=== PATIENT | female | born 1955 | race Caucasian/White ===

== ENCOUNTER 2017-04-12 07:25 | Day surgery (SDC) | payer BC ==
[~2017-04-12 07:25] MED LIST: ACETAMINOPHEN 1,000 MG/100 ML BTL IV ONE; CLINDAMYCIN 600MG/50ML PREMIX 600 MG/50 ML BAG IVPB ONE
[2017-04-12] MEDS ORDERED: KETOROLAC 30 MG/ML VIAL IVP ONE (14:00)
[2017-04-12] MEDS ORDERED: *PACU ONLY* KETAMINE HCL 10 MG/ML (20ML) VIAL IV ONE (14:00)
[2017-04-12] MEDS ORDERED: FENTANYL PF 100MCG/2ML VIAL IV ONE (14:00)
[2017-04-12] MEDS ORDERED: MIDAZOLAM HCL 2MG/2ML VIAL IV ONE (14:00)
[2017-04-12] MEDS ORDERED: PROPOFOL 10 MG/ML VIAL IV ONE (14:00)
[2017-04-12] MEDS ORDERED: BUPIVACAINE 0.25% W/EPI MPF 30ML VIAL IVP ONE (14:00)
--- NOTE | 2017-04-14 12:00 | Operative Note ---
DATE OF SURGERY: 04/12/2017 Surgeon: Beka Mcmahon DO PREOPERATIVE DIAGNOSIS: Back mass. POSTOPERATIVE DIAGNOSIS: Back mass. OPERATION: Excision of mid back mass. Indication: The patient is a 62-year-old female who had a prior lipoma removal from her mid back. She formed an additional mass just lateral to this. We did discuss excision versus observation. Due to pain and enlarging mass, she desired surgical excision. Risks include but are not limited to bleeding, infection, recurrence. She understood this fully. Thereafter, consent was signed and questions answered. PROCEDURE: She was taken to the operating room and placed in a supine position. She was then rotated into right lateral position. Her back was prepped and draped in the usual sterile fashion. Propofol anesthesia was titrated to effect. At this time, her back was anesthetized with a total of 8 mL of 0.25% Sensorcaine with epinephrine. A 5 cm incision was made. This was carried down to the subcutaneous tissue to a capsule of a large lipoma. This was dissected free from the surrounding tissue. This went down to the fascia of her paraspinal muscles. This was then passed off the field. The wound was closed with 3-0 and 4-0 Vicryl. Dermabond was placed. She was taken to the recovery room in satisfactory condition. FINDINGS AT THE TIME OF SURGERY: Mid back mass measuring 5 x 3 cm down to the fascia. CC: CINDA GROSS MD, FACP [facility]
== END 2017-04-12 10:50 | disposition home or self-care (01) ==
LOC: SUR 07:25
PROVIDERS: ATTEND Surgery
DX: D17.1 Benign lipomatous neoplasm of skin and subcutaneous tissue of trunk (principal); E03.9 Hypothyroidism, unspecified; E78.00 Pure hypercholesterolemia, unspecified; I10 Essential (primary) hypertension
CPT/HCPCS: J1885

== ENCOUNTER 2018-10-11 05:56 | Day surgery (SDC) | payer BC ==
[2018-10-11] MEDS ORDERED: ONDANSETRON HCL IV 4 MG/2 ML VIAL IVP ONE (05:57)
[2018-10-11] MEDS ORDERED: BUPIVACAINE LIPOSOME/PF 133MG/10ML VIAL IV ONE (05:57)
[2018-10-11] MEDS ORDERED: MIDAZOLAM HCL 2MG/2ML VIAL IV ONE (05:57)
[2018-10-11] MEDS ORDERED: BUPIVACAINE 0.5% (5MG/ML) PF 30ML VIAL IVP ONE (05:57)
[2018-10-11] MEDS ORDERED: EPINEPHRINE 1 MG/ML AMPUL SQ ONE (05:57)
[2018-10-11] MEDS ORDERED: PROPOFOL 10 MG/ML VIAL IV ONE (05:57)
[2018-10-11] MEDS ORDERED: FENTANYL PF 100MCG/2ML VIAL IV ONE (05:57)
[2018-10-11] MEDS ORDERED: DEXAMETHASONE 4 MG/ML 1ML VIAL IVP ONE (05:57)
[2018-10-11] MEDS ORDERED: LIDOCAINE 2% MDV (20MG/ML) 20ML VIAL IV ONE (05:57)
[2018-10-11] MEDS ORDERED: SEVOFLURANE 250 ML INH ONE (05:57)
[2018-10-11] MEDS ORDERED: METOCLOPRAMIDE 10 MG TABLET PO ONE (06:00)
[2018-10-11] MEDS ORDERED: ACETAMINOPHEN 1,000 MG/100 ML BTL IV ONE (06:00)
[2018-10-11] MEDS ORDERED: MECLIZINE 25 MG TABLET PO ONE (06:00)
[2018-10-11] MEDS ORDERED: FAMOTIDINE 20MG TABLET PO ONE (06:00)
--- NOTE | 2018-10-12 15:10 | Operative Note ---
DATE OF SURGERY: 10/11/2018 Surgeon: Patrice Leon DO PREOPERATIVE DIAGNOSES: 1. Tear of the left rotator cuff. 2. Impingement syndrome, left shoulder. 3. Tear of the glenoid labrum. POSTOPERATIVE DIAGNOSES: 1. Tear of the left rotator cuff. 2. Impingement syndrome, left shoulder. 3. Tear of the supraglenoid labrum. 4. 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 OPERATION: 1. Arthroscopic repair of the left rotator cuff. 2. Arthroscopic subacromial decompression and acromioplasty of the left shoulder. 3. Arthroscopic debridement of the anterior and superior glenoid labrum, left shoulder. DESCRIPTION OF PROCEDURE: This 63-year-old female was taken to the operating room and placed in the supine position on the operating room table. General anesthesia was induced. She was then placed in the beach chair position with all bony prominences well padded and head well secured. Left shoulder prepped with Hibiclens and draped in the usual sterile fashion. A posterior portal was established in the glenohumeral joint. Initial evaluation of the joint demonstrated some fraying of the superior and anterior glenoid labrum. This was debrided through an anterior portal after probing and there was some fraying on the undersurface but it did not appear to be completely detached from the bony glenoid. After debridement, felt that this was stable. The biceps tendon appeared normal. The subscapularis tendon demonstrated some superficial fraying on its posterior surface. This was also debrided. The supraspinatus tendon demonstrated a defect anteriorly. A full-thickness tear was noted there, and this was debrided with the rotating shaver. We marked this area with a stitch to be sure we were going to be able to see this from the bursal surface. The articular cartilage at the humeral head was evaluated and grade 2 chondromalacia was identified in the center of the head. This area was about 1 to 1.5 cm in dimension. It did not appear to be unstable and it was not further disturbed. The scope was then placed in the subacromial space, and the subacromial space was thoroughly debrided and acromioplasty performed through a lateral portal. The suture that we had placed previously to gill the spot of the tear on the inferior surface of the rotator cuff was easily identified and we removed the suture and then debrided the torn bursal side of the tendon as well to expose the tuberosity which was thoroughly debrided and the anatomic footprint of the rotator cuff was cleared of soft tissue debris. We then took what was essentially a "U" shaped tear and repaired it using a modification of the SpeedBridge technique, placing two 4.75 SwiveLock anchors adjacent to the articular cartilage, one with a TigerTape and the second with a FiberTape. Once these had been inserted, an additional support stitch of #2 FiberWire was used in a horizontal mattress fashion. A single limb of each one of these sutures was then grasped and placed through a third SwiveLock anchor which was placed inferior to the anterior anchor. Traction placed on the sutures and then the anchor impaled. Once this had been accomplished, the sutures were cut. The remaining 3 tails of suture were grasped and placed through a fourth SwiveLock anchor which was placed inferior to the posterior anchor and traction was placed on these sutures and then this anchor was also impaled and the sutures cut after the repair was seen to be satisfactory. The wound was irrigated and suctioned. The instruments were removed. The portals closed with 4-0 nylon suture. An Ultrasling was applied and the patient taken to the recovery room in satisfactory condition. GROSS PATHOLOGY: This patient demonstrated a tear of the supraspinatus tendon. There was also fraying of the glenoid labrum which was debrided. Fraying of the posterior surface of the subscapularis was also noted but this was minor. Mild chondromalacia was noted as mentioned above but not further disturbed. CC: CINDA GROSS MD, FACP [facility]
== END 2018-10-11 10:30 | disposition home or self-care (01) ==
LOC: SUR 05:56
PROVIDERS: ATTEND Orthopaedic Surgery
DX: M75.102 Unspecified rotator cuff tear or rupture of left shoulder, not specified as traumatic (principal); S43.432A Superior glenoid labrum lesion of left shoulder, initial encounter; M75.42 Impingement syndrome of left shoulder; M94.212 Chondromalacia, left shoulder; I10 Essential (primary) hypertension; E03.9 Hypothyroidism, unspecified; E78.00 Pure hypercholesterolemia, unspecified; K21.9 Gastro-esophageal reflux disease without esophagitis
CPT/HCPCS: 29827; 29826; 29822; 01630; 64415; J2405; J3010; C9290; 76942; J0171

== ENCOUNTER 2019-01-29 21:21 | Emergency (ER) | payer BC ==
[2019-01-29] MEDS ORDERED: KETOROLAC 30 MG/ML VIAL IVP ONE (21:49)
--- NOTE | 2019-01-29 21:49 | Emergency Department Record ---
History of Present Illness - General Chief Complaint: Back Pain/Injury Stated Complaint: BACK PAIN Time Seen by Provider: 01/29/19 21:27 Source: Patient Mode of Arrival: Ambulatory Limitations: No limitations - History of Present Illness Initial Comments: The patient is here due to L flank pain intermittently for a week. The pain has been sharp and stabbing and located in the L flank. It seems to be worse with movement and intermittently radiates to the anterior abdomen. The patient denies any recent AP, fever, chills, dysuria, nausea, vomiting, or diarrhea. She has no hx of similar pain and denies any leg numbness, weakness or any bowel or bladder issues. MD Complaint: Back pain Onset/Timin -: Week(s) Similar Symptoms Previously: No Severity scale (1-10): 4 Quality: Sharp, Stabbing Consistency: Intermittent Improves With: Medication Worsens With: Movement Context: Unknown Treatments Prior to Arrival: NSAIDS, Other medications - Related Data Previous Rx's Medication Instructions Recorded Cephalexin [Keflex] 500 mg PO TID #21 cap 01/29/19 Naproxen [Naprosyn] 250 mg PO BID #14 tablet 01/29/19 Allergies Allergy/AdvReac Type Severity Reaction Status Date / Time levofloxacin AdvReac Intermediate JOINT ACHES Verified 01/29/19 21:36 potassium clavulanate AdvReac Intermediate NAUSEA Verified 01/29/19 21:36 [From Augmentin] prednisone AdvReac Intermediate RAPID Verified 01/29/19 21:36 HEART RATE prochlorperazine edisylate AdvReac Intermediate ALTERED Verified 01/29/19 21:36 [From Compazine] MENTAL STATUS prochlorperazine maleate AdvReac Intermediate ALTERED Verified 01/29/19 21:36 [From Compazine] MENTAL STATUS propoxyphene HCl AdvReac Intermediate RAPID Verified 01/29/19 21:36 [From Darvon] HEART RATE Sulfa (Sulfonamide AdvReac Intermediate JOINT ACHES Verified 01/29/19 21:36 Antibiotics) Travel Screening - Travel/Exposure Within Last 30 Days Have you traveled within the last 30 days?: No - Travel/Exposure Within Last Year Have you traveled outside the [place] in the last year?: No - Additonal Travel Details Have you been exposed to anyone with a communicable illness?: No - Travel Symptoms Symptom Screening: None Review of Systems Constitutional: Denies: Chills, Fever Eyes: Denies: Eye discharge ENT: Denies: Congestion, Dental pain Respiratory: Denies: Cough, Dyspnea Cardiovascular: Denies: Arrhythmia Endocrine: Denies: Fatigue Gastrointestinal: Denies: Abdominal pain, Nausea Genitourinary: Denies: Dysuria Musculoskeletal: Reports: Back pain. Denies: Arthralgia Skin: Denies: Bruising Past Medical History - SOCIAL HISTORY Smoking Status: Never smoker Alcohol Use: None Drug Use: None - RESPIRATORY Hx Respiratory Disorders: Yes Hx Asthma: Yes (GERD related) - CARDIOVASCULAR Hx Cardio Disorders: Yes Hx Hypertension: Yes (Lisinopril rx) - NEURO Hx Neuro Disorders: No - GI Hx GI Disorders: Yes Hx Diverticulitis: Yes Hx Reflux: Yes Hx Hiatal Hernia: Yes Hx Irritable Bowel: Yes (off & on) - Hx Genitourinary Disorders: No Comment:: hyst. on zoloft for menopause - ENDOCRINE Hx Endocrine Disorders: Yes Hx Thyroid Disease: Yes (low) - MUSCULOSKELETAL Hx Musculoskeletal Disorders: Yes Comment:: trigger fingers no problem now - PSYCH Hx Psych Problems: Yes Hx Anxiety: Yes Hx Depression: Yes - HEMATOLOGY/ONCOLOGY Hx Hematology/Oncology Disorders: Yes Hx Blood Transfusions: Yes (34 yrs ago) Hx Blood Transfusion Reaction: No Family Medical History Any Significant Family History?: Yes Hx Cancer: Mother *Cancer Comment: liver & pancreatic- Hx Diabetes: Brother/Sister, Grandparents Hx Heart Disease: Father *Heart Comment: father [place] Hx HTN: Father, Mother, Brother/Sister, Grandparents Hx Liver Disease: Mother Physical Exam - General General Appearance: Alert, Oriented x3, Cooperative, No acute distress - Head Head exam: Atraumatic, Normocephalic, Normal inspection - Eye Eye exam: Normal appearance, PERRL, EOMI - ENT Throat exam: Normal inspection. negative: Tonsillar erythema, Tonsillar exudate - Neck Neck exam: Normal inspection, Full ROM. negative: Tenderness - Respiratory Respiratory exam: Normal lung sounds bilaterally. negative: Respiratory distress - Cardiovascular Cardiovascular Exam: Regular rate, Normal rhythm, Normal heart sounds - GI/Abdominal GI/Abdominal exam: Soft, Normal bowel sounds. negative: Rebound, Rigid, Tenderness - Extremities Extremities exam: Normal inspection, Full ROM, Normal capillary refill. negative: Tenderness - Back Back exam: Reports: Normal inspection, Other (Neg SLR bilaterally.). Denies: CVA tenderness (R), CVA tenderness (L), Paraspinal tenderness, Vertebral tenderness - Neurological Neurological exam: Alert, Normal gait, Oriented X3, Reflexes normal. negative: Abnormal gait, Altered, Motor sensory deficit - Psychiatric Psychiatric exam: negative: Anxious Course Vital Signs 01/29/19 21:27 Temperature 98.1 F Pulse Rate [ 80 Bilateral] Respiratory 20 Rate Blood Pressure 190/98 [Left Arm] Pulse Ox 97 - Reevaluation(s) Reevaluation #1: The patient is doing a lot better at this time. I did discuss the neg CT for stone or hydro and the fact she has a UTI. Presently the pain has resolved and is ONLY present with sitting forward and twisting the spine. I did discuss the need for F/U later this week with her PCP for recheck and to recheck her BP. 01/29/19 23:24 Medical Decision Making - Data Complexity MDM Data: Labs Ordered and/or Reviewed, X-Ray Ordered and/or Reviewed - Lab Data Result diagrams: 01/29/19 22:10 01/29/19 22:10 - Radiology Data Radiology results: Report reviewed (Abd CT: Neg for any acute changes. neg for stone or hydro. Significant lumbar arthritis.) Disposition Disposition: Discharge Clinical Impression: Left flank pain Disposition: Home, Self-Care Condition: (2) Stable Instructions: Flank Pain (ED) Additional Instructions: Please take Tylenol or Naprosyn for pain and start the Keflex tomorrow. Please see your family doctor later this week for recheck and return to the ER for any worsening symptoms. Prescriptions: Cephalexin [Keflex] 500 mg PO TID #21 cap Naproxen [Naprosyn] 250 mg PO BID #14 tablet Forms: Patient Portal Access Time of Disposition: 23:27 Quality - Quality Measures Quality Measures: N/A - Blood Pressure Screening View Details: Yes Does Patient Have Any of the Following: No Blood Pressure Classification: Hypertensive Reading Systolic Measurement: 184 Diastolic Measurement: 90 Screening for High Blood Pressure: < First Hypertensive BP, F/U Documented > [ [id number]] First Hypertensive Follow-up Interventions: Referral to alternative/primary care provider.
[2019-01-29 21:55] LABS: URINE APPEARANCE CLOUDY; URINE BILIRUBIN NEGATIVE (NEGATIVE); URINE BLOOD NEGATIVE (NEGATIVE); URINE COLOR YELLOW; URINE GLUCOSE (UA) NEGATIVE (NEGATIVE); URINE KETONE NEGATIVE (NEGATIVE); URINE LEUKOCYTE ESTERASE LARGE (NEGATIVE); URINE NITRITE NEGATIVE (NEGATIVE); URINE PROTEIN NEGATIVE (NEGATIVE); URINE UROBILINOGEN 0.2 E.U./dL (0.20 - 1.00)
[2019-01-29 22:00] LABS: URINE EPITHELIAL CELLS NONE SEEN (FEW); URINE RBC NONE SEEN (NONE SEEN)
[2019-01-29] MEDS ORDERED: CEFTRIAXONE 1GM/50ML BAG 1 GM/50 ML BAG IVPB ONE (22:00)
[2019-01-29 22:01] LABS: URINE AMORPHOUS SEDIMENT 2+
[2019-01-29 22:05] LABS: URINE BACTERIA 1+
[2019-01-29 22:15] LABS: BASO % 0.6 % (0-6); EOS % 3.4 % (0-6); GRAN % 42.8 % (47-80); HEMATOCRIT 36.6 % (35.0-47.0); HEMOGLOBIN 11.9 gm/dl (11.6-16.0); LYMPH % 43.9 % (16-45); MEAN CELL VOLUME 92.2 fl (81-97); MEAN CORPUSCULAR HGB CONC 32.5 g/dl (32-36); MEAN PLATELET VOLUME 8.9 fl (7.4-10.4); MONO % 9.3 % (0-9); PLATELET COUNT 320 K/uL (130-400); RED BLOOD COUNT 3.97 M/uL (3.80-5.40); RED CELL DISTRIBUTION WIDTH 13.4 % (11.5-14.5)
[2019-01-29 22:28] LABS: BLOOD UREA NITROGEN 13 mg/dL (8-23); CREATININE 0.8 mg/dL (0.5-0.9); EST GLOMERULAR FILTRATION RATE > 60 mL/min
[2019-01-29 22:31] LABS: GLUCOSE,RANDOM 107 mg/dL (74-109)
--- NOTE | 2019-01-31 09:52 | CT SCAN REPORT ---
EXAM: CT OF THE ABDOMEN AND PELVIS HISTORY: LEFT LOWER QUADRANT ABDOMINAL PAIN AND LEFT FLANK PAIN. TECHNIQUE: CT of the abdomen and pelvis was performed without intravenous or oral contrast. Comparison: 11/18/17. FINDINGS: The lung bases are unremarkable. There is a moderate sized hiatal hernia. The liver and spleen are unremarkable. No pancreatic mass or inflammatory change. The bile ducts are not dilated. The gallbladder is surgically absent. There is no adrenal lesion seen. There is a 2 cm hyperdense lesion in the upper pole of the right kidney. This most likely represents a proteinaceous cyst. This is unchanged in size since the patient's previous examination. There are no renal or ureteral calculi. No hydronephrosis. There is no aortic aneurysm. No periaortic mass or adenopathy. There are no dilated bowel loops. No pelvic mass, abscess, or adenopathy. There is no free air or free fluid identified. The appendix is unremarkable. There is diverticulosis. No CT evidence for diverticulitis. IMPRESSION: 1. DIVERTICULOSIS WITHOUT CT EVIDENCE FOR DIVERTICULITIS. 2. PRIOR HYSTERECTOMY AND CHOLECYSTECTOMY. 3. MODERATE SIZED HIATAL HERNIA. 4. 2 CM RIGHT RENAL LESION MOST LIKELY A HYPERDENSE PROTEINACEOUS CYST. 5. NOT MENTIONED ABOVE SCOLIOSIS AND ARTHRITIC CHANGE IN THE LUMBAR SPINE. JOB NUMBER: [id number] [facility]
== END 2019-01-29 23:51 | disposition home or self-care (01) ==
LOC: ER 21:21
DX: R10.32 Left lower quadrant pain (principal); M54.5 Low back pain; I10 Essential (primary) hypertension
CPT/HCPCS: 74176; 80048; 81001; 85025; 96365; 96375; 99284; J0696; J1885

== ENCOUNTER 2019-04-20 09:43 | Day surgery (SDC) | payer BC, MEDICARE ==
[~2019-04-20 09:43] MED LIST changes: -ACETAMINOPHEN 1,000 MG/100 ML BTL IV ONE; -CLINDAMYCIN 600MG/50ML PREMIX 600 MG/50 ML BAG IVPB ONE; +FAMOTIDINE 20MG TABLET PO ONE; +MECLIZINE 25 MG TABLET PO ONE; +METOCLOPRAMIDE 10 MG TABLET PO ONE
[2019-04-20] MEDS ORDERED: DEXAMETHASONE 4 MG/ML 1ML VIAL IVP ONE ×2 (09:44)
[2019-04-20] MEDS ORDERED: LIDOCAINE 2% MDV (20MG/ML) 20ML VIAL IV ONE (09:44)
[2019-04-20] MEDS ORDERED: FENTANYL PF 100MCG/2ML VIAL IV ONE (09:44)
[2019-04-20] MEDS ORDERED: BUPIVACAINE 0.25% MPF 30ML VIAL IVP ONE (09:44)
[2019-04-20] MEDS ORDERED: PROPOFOL 10 MG/ML VIAL IV ONE (09:44)
[2019-04-20] MEDS ORDERED: ONDANSETRON 4 MG ODT TABLET SL ONE (09:44)
[2019-04-20] MEDS ORDERED: BUPIVACAINE LIPOSOME/PF 133MG/10ML VIAL IV ONE (09:44)
[2019-04-20] MEDS ORDERED: EPHEDRINE SULFATE 50 MG/ML ML IV ONE (09:44)
[2019-04-20] MEDS ORDERED: MIDAZOLAM HCL 2MG/2ML VIAL IV ONE (09:44)
[2019-04-20] MEDS ORDERED: SEVOFLURANE 250 ML INH ONE (09:44)
[2019-04-20 10:02] LABS: ABSOLUTE NEUTROPHIL COUNT 3.53; BASO % 0.4 % (0-6); EOS % 5.4 % (0-6); GRAN % 47.5 % (47-80); HEMATOCRIT 40.5 % (35.0-47.0); LYMPH % 38.5 % (16-45); MEAN CELL VOLUME 92.5 fl (81-97); MEAN CORPUSCULAR HEMOGLOBIN 29.7 pg (27-33); MEAN CORPUSCULAR HGB CONC 32.1 g/dl (32-36); MEAN PLATELET VOLUME 8.8 fl (7.4-10.4); MONO % 8.2 % (0-9); PLATELET COUNT 298 K/uL (130-400); RED BLOOD COUNT 4.38 M/uL (3.80-5.40); RED CELL DISTRIBUTION WIDTH 13.6 % (11.5-14.5); WHITE BLOOD COUNT W/O DIFF 7.4 K/uL (4.2-12.2)
[2019-04-20] MEDS ORDERED: RINGERS SOLUTION,LACTATED 1,000 ML IV ONE ×2 (10:30→12:49)
[2019-04-20 10:39] LABS: BLOOD UREA NITROGEN 14 mg/dL (8-23); CREATININE 0.7 mg/dL (0.5-0.9); EST GLOMERULAR FILTRATION RATE > 60 mL/min; GLUCOSE,RANDOM 110 mg/dL (74-109)
[2019-04-20] MEDS ORDERED: ACETAMINOPHEN 1,000 MG/100 ML BTL IVPB ONE (10:42)
[2019-04-20] MEDS ORDERED: EPINEPHRINE 1 MG/ML AMPUL IJ ONE (12:49)
--- NOTE | 2019-04-21 13:30 | Operative Note ---
DATE OF SURGERY: 04/20/2019 SURGEON: Patrice Leon DO PREOPERATIVE DIAGNOSES: 1. Tear of the right rotator cuff. 2. Tear of the glenoid labrum. 3. Impingement syndrome, right shoulder. POSTOPERATIVE DIAGNOSES: 1. Tear of the right rotator cuff. 2. Impingement syndrome, right shoulder. 3. Tear of the glenoid labrum, right shoulder. 4. Osteoarthritis humeral head, right shoulder. 5. Chondrocalcinosis of the rotator cuff, right shoulder. DESCRIPTION OF PROCEDURE: This 64-year-old female was taken to the operating room and placed in the supine position on the operating room table where general anesthesia was induced. She was then placed in the beach chair position with all bony prominences well padded and head well secured. The right shoulder was prepped with Hibiclens and draped in the usual sterile fashion. A posterior portal was established for the glenohumeral joint of the right shoulder, and initial evaluation of the joint demonstrated grade 3 chondromalacia of the humeral head but the glenoid appeared to be normal. An anterior portal was established, and probing revealed loose fragmented articular cartilage on the humeral head. This was debrided with a rotating shaver. We then directed our attention to the glenoid labrum, and there was some fraying of the labrum but it did not appear to be detached from the bony glenoid, and I did not feel this was grossly unstable. This was debrided with a rotating shaver to what I felt was a stable rim. The biceps itself appeared to be entirely normal. There was a small superficial tear in the subscapularis tendon, and this also was debrided but the main portion of the tendon was intact. An area about 5 mm of subscapular tendon superiorly was frayed and disrupted. This area described was debrided with the rotating shaver. The scope was then placed in the subacromial space, and thorough subacromial decompression and acromioplasty was performed. Thickening of the bursal tissue was identified. The area of tear in the supraspinatus tendon was identified. The tears appeared to be longitudinal as seen from the inside of the joint as well, and this was visualized on the bursal surface as well. This area was debrided to what was felt to be healthy rotator cuff tissue. Once we started debriding the insertion site, we could see that there were areas of chondrocalcinosis of the tendon as it attached to the humeral head. These areas were debrided. Once we had debrided the tuberosity with both the Arthrocare wand as well as a rotating shaver, a healthy bed had been prepared for the reinsertion of the tendon. This was performed with a modification of the [employer] Speedbridge technique. Two 4.75 SwiveLock anchors were placed, one at the anterior and one at the posterior margin of the tear adjacent to the articular cartilage. One with a TigerTape and the second with a FiberTape. The additional suture was placed in between these two, which was a #2 FiberWire, and this was placed in horizontal mattress-type fashion. We then grasped a single slip of each one of these sutures, and this was passed through a 3rd SwiveLock anchor which was placed inferior to the anterior anchor and traction was placed on the sutures to bring the cuff down to its anatomic attachment site, and the anchor was impaled. We then directed our attention to the remaining 3 tails of suture, and these were grasped and placed through a 4th SwiveLock anchor which was placed inferior to the posterior anchor. Traction was placed on these sutures as well and the anchor was impaled. It was found to be satisfactory and the sutures were cut. The cuff was seen to be repaired back down to its anatomic attachment site. The wound was irrigated and suctioned and the instruments were removed. The portals closed with 4-0 nylon suture. Sterile dressings were applied and an UltraSling and the patient taken to the recovery room in satisfactory condition. GROSS PATHOLOGY: This patient demonstrated tearing of the supraspinatus tendon. There was grade 3 chondromalacia of the humeral head. There was also tearing of the labrum but not detachment from the bony glenoid. There was a small disruption of the superior fibers of the subscapularis. Biceps tendon appeared to be normal. CC: CINDA GROSS MD, FACP [facility]
== END 2019-04-20 13:56 | disposition home or self-care (01) ==
LOC: SUR 09:43
PROVIDERS: ATTEND Orthopaedic Surgery
DX: M75.101 Unspecified rotator cuff tear or rupture of right shoulder, not specified as traumatic (principal); S43.431A Superior glenoid labrum lesion of right shoulder, initial encounter; M75.41 Impingement syndrome of right shoulder; M19.011 Primary osteoarthritis, right shoulder; M11.211 Other chondrocalcinosis, right shoulder; I10 Essential (primary) hypertension; E78.00 Pure hypercholesterolemia, unspecified; E03.9 Hypothyroidism, unspecified; K21.9 Gastro-esophageal reflux disease without esophagitis
CPT/HCPCS: 76942; 80048; 85025; C9290; J0171; J7120